=== PATIENT | female | born 1960 | race Caucasian/White ===

== ENCOUNTER 2017-09-20 07:45 | Outpatient (CLI) | payer BC ==
[~2017-09-20 07:45] MED LIST: CELEXA; MAXALT; TOPROL; VIVELLE; WATER PILL
== END 2017-09-20 20:49 | disposition home or self-care (01) ==
LOC: SMA 07:45
PROVIDERS: ATTEND Specialist
DX: Z12.31 Encounter for screening mammogram for malignant neoplasm of breast (principal)
CPT/HCPCS: 77067